=== PATIENT | female | born 1945 | race Caucasian/White ===

== ENCOUNTER → 2016-11-15 | Outpatient (CLI) | payer MEDICARE ==
[~2016-11-15] MED LIST: *BLDWK1; *BLDWK10; *BLDWK7; *CXR; ADVAIR200 INHALATION; ALLE10TA2 PO; AMO500 PO; ASPI1TAB PO; ASTELIN NASAL; CARTIA; CLAR5CHW; CLARITIN10 PO; DARVOCET-N PO; DILT240C3; DITROPAXL5 PO; DRISDOL50 PO; DYAZ37.5; DYAZIDE; EFFE75CA75; EFFEXORXL7 PO; EPIPENAD INJECTION; ESTR625TA; FAMVIR; GLUC500T; GLUCOPH500 PO; GLUCOSAMINE; HCTZ25; KDUR20 PO; LEXAPRO10 PO; MACROBID PO; MOBIC7.5 PO; MOTRIN800 PO; OMEGA FISH OIL; OMEGA FISH OIL PO; OXYB5TAB4 PO; POTA20TA2 PO; PREMARIN; PROVENTIL INHALATION; PYRIDIU200 PO; RHINOAEROS; SKELAXIN8 PO; SPIR25TA2 PO; TESSALO100 PO; THERGRAN PO; TIAZAC; TIAZAC PO; VENL75TA2; VENTAER; VENTOLININ INHALATION; VICO5TAB; VITA500T PO; WELLBSR150; ZETIA PO; ZITHROM500 PO; ZITHROZPAK PO; ZOCO10TA PO; ZOCOR10 PO; ZOLOFT100; [UNRECOGNIZED DRUG - CODE]; [UNRECOGNIZED DRUG - OTHER] PO; [UNRECOGNIZED DRUG - SUPPLY]
[2016-11-15 08:07] LABS: MEAN CORPUSCULAR HEMOGLOBIN 33.1 pg (27.0-33.0); MEAN CORPUSCULAR HGB CONC 34.4 g/dl (32.0-36.5); MEAN CORPUSCULAR VOLUME 96.2 fl (80.0-96.0); RED CELL DISTRIBUTION WIDTH 12.2 % (11.5-14.5); WHITE BLOOD COUNT 3.8 K/mm3 (4.0-10.0)
[2016-11-15 08:32] LABS: ALBUMIN/GLOBULIN RATIO 1.29 (1.00-1.93); ALKALINE PHOSPHATASE 45 U/L (45-117); ALT/SGPT 46 U/L (12-78); ANION GAP 7 MEQ/L (8-16); AST/SGOT 21 U/L (15-37); BILIRUBIN,TOTAL 0.7 MG/DL (0.2-1.0); BLOOD UREA NITROGEN 21 MG/DL (7-18); CALCIUM LEVEL 9.3 MG/DL (8.8-10.2); CARBON DIOXIDE LEVEL 28 MEQ/L (21-32); CHLORIDE LEVEL 107 MEQ/L (98-107); CHOLESTEROL LEVEL 129 MG/DL (<200); CREATININE FOR GFR 1.36 MG/DL (0.55-1.02); GLOMERULAR FILTRATION RATE 40.7 (>39); GLUCOSE, FASTING 136 MG/DL (83-110); POTASSIUM SERUM 4.4 MEQ/L (3.5-5.1); SODIUM LEVEL 142 MEQ/L (136-145); TOTAL PROTEIN 7.1 GM/DL (6.4-8.2); TRIGLYCERIDES LEVEL 100 MG/DL (<150)
[2016-11-16 11:24] LABS: HEP C VIRUS AB SCREEN MEDICARE < 0.0 INDEX (<0.8)
== END ==
LOC: M LAB 07:06
PROVIDERS: ATTEND Family Medicine
DX: N18.3 Chronic kidney disease, stage 3 (moderate) (principal); E13.9 Other specified diabetes mellitus without complications; E04.9 Nontoxic goiter, unspecified; Z11.59 Encounter for screening for other viral diseases
CPT/HCPCS: 36415; 80053; 80061; 82043; 82306; 83036; 84439; 84443; 85027; G0472

== ENCOUNTER → 2017-05-02 | Outpatient (CLI) | payer MEDICARE ==
[2017-05-02 08:24] LABS: ANION GAP 7 MEQ/L (8-16); BLOOD UREA NITROGEN 21 MG/DL (7-18); CALCIUM LEVEL 8.6 MG/DL (8.8-10.2); CARBON DIOXIDE LEVEL 29 MEQ/L (21-32); CHLORIDE LEVEL 108 MEQ/L (98-107); CREATININE FOR GFR 1.21 MG/DL (0.55-1.02); GLOMERULAR FILTRATION RATE 46.6 (>39); GLUCOSE, FASTING 126 MG/DL (83-110); POTASSIUM SERUM 3.7 MEQ/L (3.5-5.1); SODIUM LEVEL 144 MEQ/L (136-145)
[2017-05-02 08:49] LABS: ESTIMATED AVERAGE GLUCOSE 134 MG/DL (60-110); HEMOGLOBIN A1c 6.3 %
== END ==
LOC: M LAB 06:54
DX: E13.9 Other specified diabetes mellitus without complications (principal)
CPT/HCPCS: 83036

== ENCOUNTER → 2017-11-08 | Outpatient (CLI) | payer MEDICARE ==
[2017-11-08 07:40] LABS: HEMATOCRIT 39.4 % (36.0-47.0); HEMOGLOBIN 13.3 g/dl (12.0-15.5); MEAN CORPUSCULAR HEMOGLOBIN 32.5 pg (27.0-33.0); MEAN CORPUSCULAR HGB CONC 33.8 g/dl (32.0-36.5); MEAN CORPUSCULAR VOLUME 96.3 fl (80.0-96.0); PLATELET COUNT, AUTOMATED 127 10^3/uL (150-450); RED BLOOD COUNT 4.09 10^6/uL (4.00-5.40); RED CELL DISTRIBUTION WIDTH 11.9 % (11.5-14.5); WHITE BLOOD COUNT 5.1 10^3/uL (4.0-10.0)
[2017-11-08 07:53] LABS: ESTIMATED AVERAGE GLUCOSE 143 MG/DL (60-110); HEMOGLOBIN A1c 6.6 %
[2017-11-08 08:19] LABS: ALBUMIN/GLOBULIN RATIO 1.21 (1.00-1.93); ALKALINE PHOSPHATASE 42 U/L (45-117); ALT/SGPT 47 U/L (12-78); ANION GAP 6 MEQ/L (8-16); AST/SGOT 20 U/L (7-37); BILIRUBIN,TOTAL 0.9 MG/DL (0.2-1.0); BLOOD UREA NITROGEN 23 MG/DL (7-18); CALCIUM LEVEL 8.7 MG/DL (8.8-10.2); CARBON DIOXIDE LEVEL 28 MEQ/L (21-32); CHLORIDE LEVEL 109 MEQ/L (98-107); CHOLESTEROL LEVEL 135 MG/DL (<200); CREATININE FOR GFR 1.31 MG/DL (0.55-1.30); GLOMERULAR FILTRATION RATE 42.4 (>39); GLUCOSE, FASTING 142 MG/DL (70-100); HDL CHOLESTEROL 50 MG/DL (>40); NON-HDL-C 85 MG/DL; POTASSIUM SERUM 3.7 MEQ/L (3.5-5.1); SODIUM LEVEL 143 MEQ/L (136-145); TOTAL PROTEIN 7.3 GM/DL (6.4-8.2); TRIGLYCERIDES LEVEL 105 MG/DL (<150)
[2017-11-08 08:26] LABS: CREATININE, URINE 89.4 MG/DL; MALB URINE SIEMENS 51.5 MG/L; MAU/CREAT RATIO 57.6 MCG/MG (0.0-30.0)
[2017-11-08 10:41] LABS: TOTAL 25(OH) VITAMIN D 40.6 NG/ML (30.0-100.0)
== END ==
LOC: M LAB 06:54
DX: I10 Essential (primary) hypertension (principal); N18.3 Chronic kidney disease, stage 3 (moderate); E13.9 Other specified diabetes mellitus without complications; E78.2 Mixed hyperlipidemia
CPT/HCPCS: 80053

== ENCOUNTER → 2018-05-08 | Outpatient (CLI) | payer MEDICARE ==
[~2018-05-08] MED LIST changes: +SPIR-10 PO; -SPIR25TA2 PO
[2018-05-08 08:35] LABS: HEMOGLOBIN A1c 6.3 %
[2018-05-08 08:46] LABS: ALBUMIN 3.9 GM/DL (3.2-5.2); BILIRUBIN,TOTAL 0.7 MG/DL (0.2-1.0); CALCIUM LEVEL 8.8 MG/DL (8.8-10.2); CREATININE FOR GFR 1.21 MG/DL (0.55-1.30); GLOMERULAR FILTRATION RATE 46.4 (>39); POTASSIUM SERUM 3.7 MEQ/L (3.5-5.1); TOTAL PROTEIN 6.7 GM/DL (6.4-8.2)
[2018-05-08 11:59] LABS: MALB URINE SIEMENS 39.8 MG/L
== END ==
LOC: M LAB 07:15
PROVIDERS: ATTEND Family Medicine
DX: E11.29 Type 2 diabetes mellitus with other diabetic kidney complication (principal)

== ENCOUNTER → 2018-11-02 | Outpatient (CLI) | payer MEDICARE ==
[~2018-11-02] MED LIST changes: -ALLE10TA2 PO; -ASPI1TAB PO; +ASPI81TA26 PO; +LORA-753 PO
[2018-11-02 07:39] LABS: HEMATOCRIT 38.6 % (36.0-47.0); HEMOGLOBIN 13.1 g/dl (12.0-15.5); MEAN CORPUSCULAR HEMOGLOBIN 33.5 pg (27.0-33.0); MEAN CORPUSCULAR HGB CONC 33.9 g/dl (32.0-36.5); MEAN CORPUSCULAR VOLUME 98.7 fl (80.0-96.0); PLATELET COUNT, AUTOMATED 118 10^3/uL (150-450); RED BLOOD COUNT 3.91 10^6/uL (4.00-5.40); WHITE BLOOD COUNT 4.9 10^3/uL (4.0-10.0)
[2018-11-02 08:07] LABS: ALBUMIN 3.9 GM/DL (3.2-5.2); BILIRUBIN,TOTAL 0.8 MG/DL (0.2-1.0); CALCIUM LEVEL 8.3 MG/DL (8.8-10.2); CHOLESTEROL RISK RATIO 2.367 (<5); CREATININE FOR GFR 1.19 MG/DL (0.55-1.30); FREE T4 0.97 NG/DL (0.76-1.46); GLOMERULAR FILTRATION RATE 47.2 (>39); POTASSIUM SERUM 3.6 MEQ/L (3.5-5.1); THYROID STIMULATING HORMONE 2.84 uIU/ML (0.358-3.740); TOTAL PROTEIN 6.9 GM/DL (6.4-8.2)
[2018-11-02 08:09] LABS: TOTAL 25(OH) VITAMIN D 43.4 NG/ML (30.0-100.0)
[2018-11-02 08:18] LABS: HEMOGLOBIN A1c 6.4 %
== END ==
LOC: M LAB 06:55
PROVIDERS: ATTEND Family Medicine
DX: E13.9 Other specified diabetes mellitus without complications (principal); E78.2 Mixed hyperlipidemia; E04.9 Nontoxic goiter, unspecified; N18.3 Chronic kidney disease, stage 3 (moderate)

== ENCOUNTER → 2019-04-29 | Outpatient (CLI) | payer MEDICARE ==
[2019-04-29 07:47] LABS: CALCIUM LEVEL 8.5 MG/DL (8.8-10.2); CREATININE FOR GFR 1.24 MG/DL (0.55-1.30); POTASSIUM SERUM 3.9 MEQ/L (3.5-5.1)
[2019-04-29 08:00] LABS: MALB URINE SIEMENS 40.1 MG/L; MAU/CREAT RATIO 38.1 MCG/MG (0.0-30.0)
[2019-04-29 10:16] LABS: HEMOGLOBIN A1c 6.9 %
== END ==
LOC: M LAB 06:53
PROVIDERS: ATTEND Family Medicine
DX: E11.29 Type 2 diabetes mellitus with other diabetic kidney complication (principal)

== ENCOUNTER → 2019-11-13 | Outpatient (CLI) | payer MEDICARE ==
[2019-11-13 07:22] LABS: HEMATOCRIT 39.8 % (36.0-47.0); HEMOGLOBIN 13.3 g/dl (12.0-15.5); MEAN CORPUSCULAR HEMOGLOBIN 32.8 pg (27.0-33.0); MEAN CORPUSCULAR HGB CONC 33.4 g/dl (32.0-36.5); PLATELET COUNT, AUTOMATED 115 10^3/uL (150-450); RED BLOOD COUNT 4.06 10^6/uL (4.00-5.40); WHITE BLOOD COUNT 4.3 10^3/uL (4.0-10.0)
[2019-11-13 07:53] LABS: ALBUMIN 3.8 GM/DL (3.2-5.2); ALT/SGPT 37 U/L (12-78); BILIRUBIN,TOTAL 0.9 MG/DL (0.2-1.0); BLOOD UREA NITROGEN 21 MG/DL (7-18); CALCIUM LEVEL 8.9 MG/DL (8.8-10.2); CARBON DIOXIDE LEVEL 31 MEQ/L (21-32); CHLORIDE LEVEL 108 MEQ/L (98-107); CHOLESTEROL LEVEL 132 MG/DL (<200); CHOLESTEROL RISK RATIO 2.588 (<5); CREATININE FOR GFR 1.15 MG/DL (0.55-1.30); FREE T4 1.05 NG/DL (0.76-1.46); GLUCOSE, FASTING 118 MG/DL (70-100); HDL CHOLESTEROL 51 MG/DL (>40); LDL CHOLESTEROL 61 MG/DL (<100); NON-HDL-C 81 MG/DL; POTASSIUM SERUM 3.5 MEQ/L (3.5-5.1); SODIUM LEVEL 144 MEQ/L (136-145); TOTAL PROTEIN 7.1 GM/DL (6.4-8.2); TRIGLYCERIDES LEVEL 102 MG/DL (<150)
[2019-11-13 08:38] LABS: HEMOGLOBIN A1c 5.7 %
[2019-11-13 11:09] LABS: VITAMIN B12 LEVEL 634 PG/ML
[2019-11-13 11:18] LABS: FOLATE > 24.0 NG/ML
== END ==
LOC: M LAB 06:39
PROVIDERS: ATTEND Family Medicine
DX: R26.89 Other abnormalities of gait and mobility (principal); E11.29 Type 2 diabetes mellitus with other diabetic kidney complication; E78.2 Mixed hyperlipidemia; N18.3 Chronic kidney disease, stage 3 (moderate); E04.9 Nontoxic goiter, unspecified

== ENCOUNTER → 2020-05-13 | Outpatient (CLI) | payer MEDICARE ==
[2020-05-13 08:21] LABS: CALCIUM LEVEL 9.2 MG/DL (8.8-10.2); CREATININE FOR GFR 1.22 MG/DL (0.55-1.30); GLOMERULAR FILTRATION RATE 45.7 (>39); POTASSIUM SERUM 3.8 MEQ/L (3.5-5.1)
[2020-05-13 10:58] LABS: HEMOGLOBIN A1c 5.6 %
== END ==
LOC: M LAB 06:39
PROVIDERS: ATTEND Family Medicine
DX: E11.29 Type 2 diabetes mellitus with other diabetic kidney complication (principal)

== ENCOUNTER → 2020-08-11 | Outpatient (REF) | payer MEDICARE ==
[~2020-08-11] MED LIST changes: +CENT1TAB PO; +K-TA10TA2 PO; +OXYB5TAB10 PO; +SIMV10TA21 PO; +[UNRECOGNIZED DRUG - CODE] PO; +[UNRECOGNIZED DRUG - OTHER] PO
[2020-08-11 12:33] LABS: APPEARANCE, URINE CLOUDY (CLEAR); BACTERIA, URINE AUTO 1+ (NEGATIVE); BILIRUBIN, URINE AUTO NEGATIVE (NEGATIVE); BLOOD, URINE BLOOD 1+ (NEGATIVE); COLOR, URINE YELLOW (YELLOW); GLUCOSE, URINE (UA) AUTO NEGATIVE (NEGATIVE); KETONE, URINE AUTO NEGATIVE (NEGATIVE); LEUKOCYTE ESTERASE, URINE AUTO 3+ (NEGATIVE); MUCUS, URINE SMALL (NEGATIVE); NITRITE, URINE AUTO NEGATIVE (NEGATIVE); PROTEIN, URINE AUTO NEGATIVE (NEGATIVE); RBC, URINE AUTO 9 /HPF (0-3); SPECIFIC GRAVITY URINE AUTO 1.011 (1.002-1.035); SQUAMOUS EPITHELIAL CELL UR AU 4 /HPF (0-6); UROBILINOGEN, URINE AUTO 0.2 mg/dL (0.0-2.0); WBC, URINE AUTO 103 /HPF (0-3)
== END ==
LOC: M SFHCADAM 11:25
PROVIDERS: ATTEND Physician Assistant
DX: N30.00 Acute cystitis without hematuria (principal)
CPT/HCPCS: 81001; 81002; 87088; 87186; G0463

== ENCOUNTER → 2020-09-04 | Outpatient (CLI) | payer MEDICARE | LOC: M LABSMTC 11:04 | PROVIDERS: ATTEND Anesthesiology | DX: Z01.812 Encounter for preprocedural laboratory examination (principal); Z20.822 Contact with and (suspected) exposure to COVID-19 ==

== ENCOUNTER 2020-09-09 08:26 | Day surgery (SDC) | payer MEDICARE ==
[~2020-09-09] VITALS: Ht 162.6 cm; Wt 54.3 kg
[~2020-09-09 08:26] MED LIST changes: +NS 1,000 ML IV ONE
[2020-09-09] MEDS ORDERED: propofoL 200 MG/20 ML VIAL As Ordered ONE (09:04)
[2020-09-09] MEDS ORDERED: fentaNYL 100 MCG/2 ML INJECTION (J3010) As Ordered ONE (09:04)
[2020-09-09] MEDS ORDERED: LIDOCAINE 2% MDV 20ML VIAL As Ordered ONE (09:04)
--- NOTE | 2020-09-09 09:27 | ROOR ---
Patient Name: Lida Pierre Procedure Date: 09/09/2020 9:09 AM Date of : 1945 Age: 75 Room: [facility] Gender: Female Note Status: Finalized Procedure: Upper GI endoscopy + Balloon dilatation Indications: Dysphagia, Heartburn Providers: Eduardo Miranda MD Referring MD: Nii Coleman MD Requesting Provider: Medicines: Monitored Anesthesia Care Complications: No immediate complications. Procedure: Pre-Anesthesia Assessment: - The heart rate, respiratory rate, oxygen saturations, blood pressure, adequacy of pulmonary ventilation, and response to care were monitored throughout the procedure. The Endoscope was introduced through the mouth, and advanced to the second part of duodenum. The upper GI endoscopy was accomplished without difficulty. The patient tolerated the procedure well. Findings: The Z-line was regular and was found 35 cm from the incisors. A mild Schatzki ring was found at the gastroesophageal junction. A TTS dilator was passed through the scope. Dilation with a 15-16.5-18 mm balloon dilator was performed to 18 mm. The dilation site was examined and showed mild mucosal disruption. A medium-sized hiatal hernia was present. No other significant abnormalities were identified in a careful examination of the stomach. The exam of the duodenum was otherwise normal. Impression: - Z-line regular, 35 cm from the incisors. - Mild Schatzki ring. Dilated. - Medium-sized hiatal hernia. - No specimens collected. - The examination was otherwise normal. Recommendation: - Patient has a contact number available for emergencies. The signs and symptoms of potential delayed complications were discussed with the patient. Return to normal activities tomorrow. Written discharge instructions were provided to the patient. - Resume previous diet. - Discharge patient to home. - Follow an antireflux regimen. - Continue present medications. - Repeat upper endoscopy PRN for retreatment. - Return to referring physician. - Use Prilosec (omeprazole) 40 mg PO daily. - The findings and recommendations were discussed with the patient's family. Procedure Code(s): --- Professional --- 60519, Esophagogastroduodenoscopy, flexible, transoral; with transendoscopic balloon dilation of esophagus (less than 30 mm diameter) Diagnosis Code(s): --- Professional --- K22.2, Esophageal obstruction K44.9, Diaphragmatic hernia without obstruction or gangrene R13.10, Dysphagia, unspecified R12, Heartburn CPT copyright 2019 [employer]. All rights reserved. The codes documented in this report are preliminary and upon clipper machine review may be revised to meet current compliance requirements. Eduardo Miranda MD Eduardo Miranda MD 09/09/2020 9:27:01 AM Electronically signed by Eduardo Miranda MD Number of Addenda: 0 Note Initiated On: 09/09/2020 9:09 AM Estimated Blood Loss: Estimated blood loss: none.
--- NOTE | 2020-09-09 09:49 | ROOR ---
Patient Name: Lida Pierre Procedure Date: 09/09/2020 9:09 AM Date of : 1945 Age: 75 Room: [facility] Gender: Female Note Status: Finalized Procedure: Total Colonoscopy to Cecum + Biopsy Polypectomy Indications: Colon cancer screening in patient at increased risk: Colorectal cancer in father, High risk colon cancer surveillance: Personal history of colonic polyps Providers: Eduardo Miranda MD Referring MD: Nii Coleman MD Requesting Provider: Medicines: Monitored Anesthesia Care Complications: No immediate complications. Procedure: Pre-Anesthesia Assessment: - The heart rate, respiratory rate, oxygen saturations, blood pressure, adequacy of pulmonary ventilation, and response to care were monitored throughout the procedure. The Colonoscope was introduced through the anus and advanced to the cecum, identified by appendiceal orifice and ileocecal valve. The colonoscopy was performed without difficulty. The patient tolerated the procedure well. The quality of the bowel preparation was good. Findings: The perianal and digital rectal examinations were normal. Non-bleeding internal hemorrhoids were found during retroflexion. The hemorrhoids were small and Grade I (internal hemorrhoids that do not prolapse). Multiple small-mouthed diverticula were found in the recto-sigmoid colon, sigmoid colon and descending colon. A medium polyp was found in the mid ascending colon. The polyp was sessile. The polyp was removed with a jumbo cold forceps. Resection and retrieval were complete. The exam was otherwise without abnormality on direct and retroflexion views. Impression: - Non-bleeding internal hemorrhoids. - Diverticulosis in the recto-sigmoid colon, in the sigmoid colon and in the descending colon. - One medium polyp in the mid ascending colon, removed with a jumbo cold forceps. Resected and retrieved. - The examination was otherwise normal on direct and retroflexion views. - The exam was otherwise normal to the cecum. Recommendation: - Patient has a contact number available for emergencies. The signs and symptoms of potential delayed complications were discussed with the patient. Return to normal activities tomorrow. Written discharge instructions were provided to the patient. - High fiber diet. - Discharge patient to home. - Continue present medications. - Await pathology results. - Telephone GI clinic for pathology results in 1 week. - Repeat colonoscopy is not recommended due to current age (66 years or older) for surveillance based on pathology results. - Return to referring physician. - The findings and recommendations were discussed with the patient's family. Procedure Code(s): --- Professional --- 69281, Colonoscopy, flexible; with biopsy, single or multiple Diagnosis Code(s): --- Professional --- Z80.0, Family history of malignant neoplasm of digestive organs Z86.010, Personal history of colonic polyps K64.0, First degree hemorrhoids K63.5, Polyp of colon K57.30, Diverticulosis of large intestine without perforation or abscess without bleeding CPT copyright 2019 [employer]. All rights reserved. The codes documented in this report are preliminary and upon finance mgr review may be revised to meet current compliance requirements. Eduardo Miranda MD Eduardo Miranda MD 09/09/2020 9:49:16 AM Electronically signed by Eduardo Miranda MD Number of Addenda: 0 Note Initiated On: 09/09/2020 9:09 AM Estimated Blood Loss: Estimated blood loss: none.
[2020-09-09 10:17] VITALS: BP 150/65
== END 2020-09-09 10:18 | disposition home or self-care (01) ==
LOC: M OPP 08:26
PROVIDERS: ATTEND Internal Medicine Gastroenterology
DX: Z12.11 Encounter for screening for malignant neoplasm of colon (principal); Z86.010 Personal history of colon polyps; Z80.0 Family history of malignant neoplasm of digestive organs; D12.2 Benign neoplasm of ascending colon; K57.30 Diverticulosis of large intestine without perforation or abscess without bleeding; K64.0 First degree hemorrhoids; K22.2 Esophageal obstruction; K44.9 Diaphragmatic hernia without obstruction or gangrene; R13.10 Dysphagia, unspecified; Z79.82 Long term (current) use of aspirin; Z79.899 Other long term (current) drug therapy; Z88.0 Allergy status to penicillin; Z88.1 Allergy status to other antibiotic agents; Z88.5 Allergy status to narcotic agent
CPT/HCPCS: 43249; 45380; 88305; J3010

== ENCOUNTER → 2020-11-05 | Outpatient (CLI) | payer MEDICARE ==
[~2020-11-05] MED LIST changes: -NS 1,000 ML IV ONE
[2020-11-05 06:50] LABS: HEMATOCRIT 41.3 % (36.0-47.0); HEMOGLOBIN 13.4 g/dl (12.0-15.5); MEAN CORPUSCULAR HEMOGLOBIN 31.6 pg (27.0-33.0); MEAN CORPUSCULAR HGB CONC 32.4 g/dl (32.0-36.5); MEAN CORPUSCULAR VOLUME 97.4 fl (80.0-96.0); PLATELET COUNT, AUTOMATED 120 10^3/uL (150-450); RED BLOOD COUNT 4.24 10^6/uL (4.00-5.40); WHITE BLOOD COUNT 4.6 10^3/uL (4.0-10.0)
[2020-11-05 07:24] LABS: ALBUMIN 3.9 GM/DL (3.2-5.2); BILIRUBIN,TOTAL 0.9 MG/DL (0.2-1.0); CALCIUM LEVEL 8.8 MG/DL (8.8-10.2); CHOLESTEROL RISK RATIO 2.622 (<5); CREATININE FOR GFR 1.14 MG/DL (0.55-1.30); GLOMERULAR FILTRATION RATE 49.3 (>39); POTASSIUM SERUM 3.9 MEQ/L (3.5-5.1); THYROID STIMULATING HORMONE 3.16 uIU/ML (0.358-3.740); TOTAL PROTEIN 7.3 GM/DL (6.4-8.2)
[2020-11-05 07:27] LABS: CREATININE, URINE 62.3 MG/DL; MALB URINE SIEMENS 61.5 MG/L; MAU/CREAT RATIO 98.7 MCG/MG (0.0-30.0)
== END ==
LOC: M LAB 06:23
PROVIDERS: ATTEND Family Medicine
DX: E11.29 Type 2 diabetes mellitus with other diabetic kidney complication (principal)

== ENCOUNTER → 2020-11-12 | Outpatient (REF) | payer MEDICARE | LOC: M LAB REF 09:09 | PROVIDERS: ATTEND Family Medicine | DX: N30.00 Acute cystitis without hematuria (principal) ==

== ENCOUNTER → 2021-03-23 | Outpatient (REF) | payer MEDICARE | LOC: M SFHCPLAZ 12:55 | PROVIDERS: ATTEND Physician Assistant | DX: R09.89 Other specified symptoms and signs involving the circulatory and respiratory systems (principal) | CPT/HCPCS: 87426; G0463; U0003 ==

== ENCOUNTER → 2021-04-09 | Outpatient (REF) | payer MEDICARE | LOC: M LAB REF 15:00 | PROVIDERS: ATTEND Physician Assistant | DX: R19.7 Diarrhea, unspecified (principal) ==

== ENCOUNTER → 2021-05-21 | Outpatient (CLI) | payer MEDICARE ==
[2021-05-21 07:45] LABS: CALCIUM LEVEL 9.3 MG/DL (8.8-10.2); CREATININE FOR GFR 1.14 MG/DL (0.55-1.30); GLOMERULAR FILTRATION RATE 49.3 (>39)
[2021-05-21 08:00] LABS: HEMOGLOBIN A1c 6.6 %
== END ==
LOC: M LAB 06:51
PROVIDERS: ATTEND Family Medicine
DX: E11.29 Type 2 diabetes mellitus with other diabetic kidney complication (principal)

== ENCOUNTER → 2022-01-13 | Outpatient (CLI) | payer MEDICARE ==
[2022-01-13 08:07] LABS: HEMATOCRIT 41.7 % (36.0-47.0); MEAN CORPUSCULAR HEMOGLOBIN 32.6 pg (27.0-33.0); MEAN CORPUSCULAR HGB CONC 33.6 g/dl (32.0-36.5); PLATELET COUNT, AUTOMATED 134 10^3/uL (150-450); WHITE BLOOD COUNT 5.1 10^3/uL (4.0-10.0)
[2022-01-13 08:22] LABS: HEMOGLOBIN A1c 6.4 %
[2022-01-13 08:56] LABS: ALBUMIN 4.1 GM/DL (3.2-5.2); BILIRUBIN,TOTAL 0.9 MG/DL (0.2-1.0); CALCIUM LEVEL 9.5 MG/DL (8.8-10.2); CHOLESTEROL RISK RATIO 2.795 (<5); CREATININE FOR GFR 1.17 MG/DL (0.55-1.30); FREE T4 1.05 NG/DL (0.76-1.46); GLOMERULAR FILTRATION RATE 47.7 (>39); POTASSIUM SERUM 4.2 MEQ/L (3.5-5.1); THYROID STIMULATING HORMONE 3.45 uIU/ML (0.358-3.740); TOTAL PROTEIN 7.3 GM/DL (6.4-8.2)
[2022-01-13 09:00] LABS: MAU/CREAT RATIO 180.9 MCG/MG (0.0-30.0)
== END ==
LOC: M LAB 06:39
PROVIDERS: ATTEND Family Medicine
DX: R80.9 Proteinuria, unspecified (principal); E78.2 Mixed hyperlipidemia; E04.9 Nontoxic goiter, unspecified; E11.29 Type 2 diabetes mellitus with other diabetic kidney complication

== ENCOUNTER → 2022-06-01 | Outpatient (REF) | payer MEDICARE ==
[2022-06-01 15:14] LABS: CALCIUM LEVEL 9.5 MG/DL (8.3-10.6); CREATININE FOR GFR 1.14 MG/DL (0.55-1.30); GLOMERULAR FILTRATION RATE 49.2 (>39); POTASSIUM SERUM 4.2 MMOL/L (3.5-5.1)
== END ==
LOC: M SFHCADAM 10:55
PROVIDERS: ATTEND Family Medicine
DX: Z01.818 Encounter for other preprocedural examination (principal); I10 Essential (primary) hypertension

== ENCOUNTER 2022-06-14 11:19 | Emergency (ER) | payer MEDICARE ==
[~2022-06-14] VITALS: Ht 162.6 cm; Wt 56.4 kg
[2022-06-14 16:02] LABS: BASO # 0.1 10^3/uL (0.0-0.2); BASO % 0.5 % (0.0-1.0); EOS # 0.2 10^3/uL (0.0-0.5); EOS % 2.2 % (0.0-3.0); HEMATOCRIT 42.6 % (36.0-47.0); HEMOGLOBIN 14.4 g/dl (12.0-15.5); LYMPH # 2.9 10^3/uL (1.5-5.0); LYMPH % 30.6 % (24.0-44.0); MEAN CORPUSCULAR HEMOGLOBIN 31.9 pg (27.0-33.0); MEAN CORPUSCULAR HGB CONC 33.8 g/dl (32.0-36.5); MEAN CORPUSCULAR VOLUME 94.5 fl (80.0-96.0); MONO # 0.9 10^3/uL (0.0-0.8); MONO % 9.5 % (2.0-8.0); NEUTROPHILS # 5.4 10^3/uL (1.5-8.5); NEUTROPHILS % 56.8 % (36.0-66.0); PLATELET COUNT, AUTOMATED 158 10^3/uL (150-450); RED BLOOD COUNT 4.51 10^6/uL (4.00-5.40); WHITE BLOOD COUNT 9.5 10^3/uL (4.0-10.0)
[2022-06-14 16:17] LABS: CK-MB VALUE MASS 4.1 NG/ML (<3.6)
[2022-06-14 16:21] LABS: MB/CK RELATIVE INDEX 1.2 (< OR =4)
[2022-06-14] MEDS ORDERED: NS 1,000 ML IV ONE (17:10)
[2022-06-14 19:36] LABS: MB/CK RELATIVE INDEX 1.47 (< OR =4)
[2022-06-14] MEDS ORDERED: ACETAMINOPHEN TAB 650MG DOSE (2X325MG) PO ONE (19:40)
[2022-06-14] MEDS ORDERED: amLODIPine 5 MG TAB PO ONE (19:50)
[2022-06-14] MEDS ORDERED: hydrALAZINE 20MG/ML 1ML VIAL IV ONE (19:50)
[2022-06-14 20:05] VITALS: BP 178/86
[2022-06-14] MEDS ORDERED: AMLO25TA PO (20:31)
[2022-06-14 20:59] VITALS: BP 172/86
== END 2022-06-14 21:07 | disposition home or self-care (01) ==
LOC: M ED 11:19
DX: I10 Essential (primary) hypertension (principal); E11.9 Type 2 diabetes mellitus without complications; E78.5 Hyperlipidemia, unspecified; J45.909 Unspecified asthma, uncomplicated; F32.9 Major depressive disorder, single episode, unspecified; Z79.82 Long term (current) use of aspirin; Z79.899 Other long term (current) drug therapy; Z88.8 Allergy status to other drugs, medicaments and biological substances; Z88.2 Allergy status to sulfonamides; Z88.5 Allergy status to narcotic agent; Z91.018 Allergy to other foods
CPT/HCPCS: 36415; 80047; 82550; 82553; 84484; 85025; 93005; 96361; 96374; 99284; J0360

== ENCOUNTER → 2022-06-28 | Outpatient (CLI) | payer MEDICARE ==
[~2022-06-28] MED LIST changes: +AMLO25TA PO
[2022-06-28 09:12] LABS: ALBUMIN 3.9 G/DL (3.2-5.2); BILIRUBIN,TOTAL 0.8 MG/DL (0.3-1.2); CALCIUM LEVEL 8.7 MG/DL (8.3-10.6); CHOLESTEROL RISK RATIO 2.73 (<5); CREATININE FOR GFR 1.04 MG/DL (0.55-1.30); GLOMERULAR FILTRATION RATE 54.7 (>39); HDL CHOLESTEROL 45.7 MG/DL (>40); LDL CHOLESTEROL 60.1 MG/DL (<100); POTASSIUM SERUM 3.8 MMOL/L (3.5-5.1); TOTAL PROTEIN 6.7 G/DL (5.7-8.2)
[2022-06-28 09:15] LABS: FREE T4 1.09 NG/DL (0.89-1.76); THYROID STIMULATING HORMONE 2.934 uIU/ML (0.55-4.78)
[2022-06-28 09:25] LABS: HEMOGLOBIN A1c 6.4 % (4.0-6.0)
== END ==
LOC: M LAB 06:14
PROVIDERS: ATTEND Family Medicine
DX: E11.29 Type 2 diabetes mellitus with other diabetic kidney complication (principal)

== ENCOUNTER → 2022-08-11 | Outpatient (REF) | payer MEDICARE ==
[2022-08-11 16:12] LABS: HEMATOCRIT 39.4 % (36.0-47.0); HEMOGLOBIN 13.3 g/dl (12.0-15.5); MEAN CORPUSCULAR HEMOGLOBIN 32.7 pg (27.0-33.0); MEAN CORPUSCULAR HGB CONC 33.8 g/dl (32.0-36.5); MEAN CORPUSCULAR VOLUME 96.8 fl (80.0-96.0); PLATELET COUNT, AUTOMATED 162 10^3/uL (150-450); RED BLOOD COUNT 4.07 10^6/uL (4.00-5.40); WHITE BLOOD COUNT 7.8 10^3/uL (4.0-10.0)
[2022-08-11 16:17] LABS: ALBUMIN 4.1 G/DL (3.2-5.2); BILIRUBIN,TOTAL 0.7 MG/DL (0.3-1.2); CALCIUM LEVEL 9.8 MG/DL (8.3-10.6); CREATININE FOR GFR 1.2 MG/DL (0.55-1.30); GLOMERULAR FILTRATION RATE 46.4 (>39); POTASSIUM SERUM 4.3 MMOL/L (3.5-5.1); TOTAL PROTEIN 7.2 G/DL (5.7-8.2)
[2022-08-11 16:24] LABS: HEMOGLOBIN A1c 6.6 % (4.0-6.0)
[2022-08-11 16:34] LABS: CREATININE, URINE 80.6 MG/DL; MAU/CREAT RATIO 33.4 MCG/MG (0.0-30.0)
== END ==
LOC: M SFHCADAM 13:50
PROVIDERS: ATTEND Family Medicine
DX: E11.29 Type 2 diabetes mellitus with other diabetic kidney complication (principal); N18.31 Chronic kidney disease, stage 3a; R80.9 Proteinuria, unspecified

== ENCOUNTER → 2022-09-13 | Outpatient (REF) | payer MEDICARE | LOC: M SFHCADAM 13:46 | PROVIDERS: ATTEND Physician Assistant | DX: E11.29 Type 2 diabetes mellitus with other diabetic kidney complication (principal); I12.9 Hypertensive chronic kidney disease with stage 1 through stage 4 chronic kidney disease, or unspecified chronic kidney disease ==

== ENCOUNTER → 2022-09-30 | Outpatient (CLI) | payer MEDICARE ==
[2022-09-30 06:48] LABS: HEMATOCRIT 38.7 % (36.0-47.0); HEMOGLOBIN 12.8 g/dl (12.0-15.5); MEAN CORPUSCULAR HEMOGLOBIN 32.5 pg (27.0-33.0); MEAN CORPUSCULAR HGB CONC 33.1 g/dl (32.0-36.5); MEAN CORPUSCULAR VOLUME 98.2 fl (80.0-96.0); PLATELET COUNT, AUTOMATED 134 10^3/uL (150-450); RED BLOOD COUNT 3.94 10^6/uL (4.00-5.40); WHITE BLOOD COUNT 5.4 10^3/uL (4.0-10.0)
[2022-09-30 07:08] LABS: CALCIUM LEVEL 8.5 MG/DL (8.3-10.6); CREATININE FOR GFR 1.46 MG/DL (0.55-1.30); GLOMERULAR FILTRATION RATE 36.9 (>39); POTASSIUM SERUM 3.9 MMOL/L (3.5-5.1)
[2022-09-30 07:31] LABS: HEMOGLOBIN A1c 6.4 % (4.0-6.0)
== END ==
LOC: M LAB 06:23
PROVIDERS: ATTEND Physician Assistant
DX: I10 Essential (primary) hypertension (principal)

== ENCOUNTER → 2022-12-23 | Outpatient (CLI) | payer MEDICARE ==
[~2022-12-23] MED LIST changes: -K-TA10TA2 PO; +POTA-165 PO
[2022-12-23 08:02] LABS: CALCIUM LEVEL 8.9 MG/DL (8.3-10.6); CREATININE FOR GFR 1.19 MG/DL (0.55-1.30); GLOMERULAR FILTRATION RATE 46.7 (>39); POTASSIUM SERUM 4.3 MMOL/L (3.5-5.1)
[2022-12-23 08:09] LABS: HEMOGLOBIN A1c 6.8 % (4.0-6.0)
== END ==
LOC: M LAB 06:43
PROVIDERS: ATTEND Family Medicine
DX: E11.29 Type 2 diabetes mellitus with other diabetic kidney complication (principal)

== ENCOUNTER → 2023-06-23 | Outpatient (CLI) | payer MEDICARE ==
[~2023-06-23] MED LIST changes: -OXYB5TAB10 PO; +OXYB5TAB14 PO
[2023-06-23 07:32] LABS: HEMATOCRIT 38.8 % (36.0-47.0); MEAN CORPUSCULAR HEMOGLOBIN 32.2 pg (27.0-33.0); MEAN CORPUSCULAR HGB CONC 33.5 g/dl (32.0-36.5); PLATELET COUNT, AUTOMATED 151 10^3/uL (150-450); RED BLOOD COUNT 4.04 10^6/uL (4.00-5.40); WHITE BLOOD COUNT 4.9 10^3/uL (4.0-10.0)
[2023-06-23 07:56] LABS: ALBUMIN 3.8 G/DL (3.2-5.2); BILIRUBIN,TOTAL 0.9 MG/DL (0.3-1.2); CALCIUM LEVEL 9.2 MG/DL (8.3-10.6); CHOLESTEROL RISK RATIO 3.17 (<5); CREATININE FOR GFR 1.2 MG/DL (0.55-1.30); CREATININE, URINE 67.6 MG/DL; GLOMERULAR FILTRATION RATE 46.3 (>39); HDL CHOLESTEROL 39.4 MG/DL (>40); LDL CHOLESTEROL 63.8 MG/DL (<100); MAU/CREAT RATIO 87.2 MCG/MG (0.0-30.0); NON-HDL-C 85.6 MG/DL; POTASSIUM SERUM 3.9 MMOL/L (3.5-5.1); TOTAL PROTEIN 6.8 G/DL (5.7-8.2)
== END ==
LOC: M LAB 06:36
PROVIDERS: ATTEND Family Medicine
DX: N18.31 Chronic kidney disease, stage 3a (principal); E13.9 Other specified diabetes mellitus without complications; E78.2 Mixed hyperlipidemia

== ENCOUNTER → 2023-06-29 | Outpatient (REF) | payer MEDICARE | LOC: M SFHCADAM 08:43 | PROVIDERS: ATTEND Family Medicine | DX: E13.9 Other specified diabetes mellitus without complications (principal) ==

== ENCOUNTER → 2023-08-17 | Outpatient (REF) | payer MEDICARE ==
[2023-08-17 13:15] LABS: C REACTIVE PROTEIN QUANTITATIV < 0.40 MG/DL (<1.0)
[2023-08-17 13:17] LABS: ALBUMIN 3.8 G/DL (3.2-5.2); ALKALINE PHOSPHATASE 56 U/L (46-116); ALT/SGPT 30 U/L (7.0-40); AST/SGOT 20 U/L (<34); BILIRUBIN,TOTAL 0.8 MG/DL (0.3-1.2); BLOOD UREA NITROGEN 25 MG/DL (9-23); CARBON DIOXIDE LEVEL 28 MMOL/L (20-31); CHLORIDE LEVEL 106 MMOL/L (98-107); CREATININE FOR GFR 1.24 MG/DL (0.55-1.30); GLOMERULAR FILTRATION RATE 44.5 (>39); GLUCOSE, FASTING 169 MG/DL (74-106); POTASSIUM SERUM 4.3 MMOL/L (3.5-5.1); SODIUM LEVEL 139 MMOL/L (136-145); TOTAL PROTEIN 7.1 G/DL (5.7-8.2)
[2023-08-17 13:29] LABS: HEMOGLOBIN A1c 6.8 % (4.0-6.0)
[2023-08-17 13:30] LABS: HEMATOCRIT 40.6 % (36.0-47.0); HEMOGLOBIN 13.6 g/dl (12.0-15.5); MEAN CORPUSCULAR HEMOGLOBIN 31.9 pg (27.0-33.0); MEAN CORPUSCULAR HGB CONC 33.5 g/dl (32.0-36.5); MEAN CORPUSCULAR VOLUME 95.1 fl (80.0-96.0); PLATELET COUNT, AUTOMATED 175 10^3/uL (150-450); RED BLOOD COUNT 4.27 10^6/uL (4.00-5.40); WHITE BLOOD COUNT 7.3 10^3/uL (4.0-10.0)
== END ==
LOC: M SFHCADAM 10:05
PROVIDERS: ATTEND Family Medicine
DX: E13.9 Other specified diabetes mellitus without complications (principal); K52.9 Noninfective gastroenteritis and colitis, unspecified; I10 Essential (primary) hypertension

== ENCOUNTER → 2023-10-19 | Outpatient (CLI) | payer MEDICARE ==
[2023-10-19 07:32] LABS: HEMOGLOBIN A1c 6.7 % (4.0-6.0)
[2023-10-19 07:34] LABS: CALCIUM LEVEL 9.2 MG/DL (8.3-10.6); CREATININE FOR GFR 1.27 MG/DL (0.55-1.30); GLOMERULAR FILTRATION RATE 43.2 (>39)
== END ==
LOC: M LAB 06:44
PROVIDERS: ATTEND Family Medicine
DX: E13.9 Other specified diabetes mellitus without complications (principal)

== ENCOUNTER → 2024-02-28 | Outpatient (CLI) | payer MEDICARE ==
[2024-02-28 08:08] LABS: HEMATOCRIT 37.4 % (36.0-47.0); HEMOGLOBIN 12.4 g/dl (12.0-15.5); MEAN CORPUSCULAR HEMOGLOBIN 32.2 pg (27.0-33.0); MEAN CORPUSCULAR HGB CONC 33.2 g/dl (32.0-36.5); MEAN CORPUSCULAR VOLUME 97.1 fl (80.0-96.0); PLATELET COUNT, AUTOMATED 155 10^3/uL (150-450); RED BLOOD COUNT 3.85 10^6/uL (4.00-5.40); WHITE BLOOD COUNT 5.3 10^3/uL (4.0-10.0)
[2024-02-28 08:35] LABS: ALBUMIN 3.7 G/DL (3.2-5.2); BILIRUBIN,TOTAL 0.7 MG/DL (0.3-1.2); CALCIUM LEVEL 9.7 MG/DL (8.3-10.6); CHOLESTEROL RISK RATIO 2.96 (<5); CREATININE FOR GFR 1.24 MG/DL (0.55-1.30); GLOMERULAR FILTRATION RATE 44.4 (>39); HDL CHOLESTEROL 38.8 MG/DL (>40); LDL CHOLESTEROL 58.6 MG/DL (<100); NON-HDL-C 76.2 MG/DL; POTASSIUM SERUM 4.2 MMOL/L (3.5-5.1); TOTAL PROTEIN 6.9 G/DL (5.7-8.2)
[2024-02-28 08:36] LABS: CREATININE, URINE 74.8 MG/DL; MAU/CREAT RATIO 141.7 MCG/MG (0.0-30.0)
[2024-02-28 08:39] LABS: FREE T4 1.3 NG/DL (0.89-1.76); THYROID STIMULATING HORMONE 4.92 uIU/ML (0.55-4.78)
[2024-02-28 08:58] LABS: HEMOGLOBIN A1c 7.1 % (4.0-6.0)
== END ==
LOC: M LAB 06:50
PROVIDERS: ATTEND Family Medicine
DX: K52.9 Noninfective gastroenteritis and colitis, unspecified (principal); E78.00 Pure hypercholesterolemia, unspecified

== ENCOUNTER → 2024-05-07 | Outpatient (CLI) | payer MEDICARE | LOC: M ADAMS 15:39 | PROVIDERS: ATTEND Family Medicine | DX: M25.462 Effusion, left knee (principal) ==

== ENCOUNTER → 2024-05-16 | Outpatient (REF) | payer MEDICARE | LOC: M SFHCWAGY 14:31 | PROVIDERS: ATTEND Nurse Practitioner Family | DX: N73.9 Female pelvic inflammatory disease, unspecified (principal) ==

== ENCOUNTER → 2024-09-11 | Outpatient (CLI) | payer MEDICARE ==
[2024-09-11 08:23] LABS: CALCIUM LEVEL 8.9 MG/DL (8.3-10.6); CREATININE FOR GFR 1.25 MG/DL (0.55-1.30); GLOMERULAR FILTRATION RATE 43.6 (>32); POTASSIUM SERUM 3.9 MMOL/L (3.5-5.1)
== END ==
LOC: M LAB 06:37
PROVIDERS: ATTEND Family Medicine
DX: E13.9 Other specified diabetes mellitus without complications (principal)

== ENCOUNTER → 2024-12-04 | Outpatient (REF) | payer MEDICARE ==
[2024-12-04 14:17] LABS: CALCIUM LEVEL 9.8 MG/DL (8.3-10.6); CARBON DIOXIDE LEVEL 28.0 MMOL/L (20-31); CHLORIDE LEVEL 104.0 MMOL/L (98-107); CREATININE FOR GFR 1.14 MG/DL (0.55-1.30); GLOMERULAR FILTRATION RATE 48.7 (>32); POTASSIUM SERUM 3.9 MMOL/L (3.5-5.1); SODIUM LEVEL 143.0 MMOL/L (136-145)
[2024-12-04 14:20] LABS: ESTIMATED AVERAGE GLUCOSE 166.0 MG/DL (60-110)
== END ==
LOC: M SFHCADAM 10:32
PROVIDERS: ATTEND Family Medicine
DX: Z01.818 Encounter for other preprocedural examination (principal); I10 Essential (primary) hypertension; E11.29 Type 2 diabetes mellitus with other diabetic kidney complication

== ENCOUNTER → 2025-03-13 | Outpatient (CLI) | payer MEDICARE ==
[2025-03-13 07:57] LABS: PLATELET COUNT, AUTOMATED 141 10^3/uL (150-450)
[2025-03-13 08:10] LABS: CREATININE, URINE 88.3 MG/DL; MALB URINE SIEMENS 92.0 MG/L; MAU/CREAT RATIO 104.1 MCG/MG (0.0-30.0)
[2025-03-13 08:23] LABS: ALT/SGPT 31.0 U/L (7.0-40); AST/SGOT 23.0 U/L (<34); CALCIUM LEVEL 9.0 MG/DL (8.3-10.6); CARBON DIOXIDE LEVEL 29.0 MMOL/L (20-31); CHLORIDE LEVEL 104.0 MMOL/L (98-107); CHOLESTEROL LEVEL 117.0 MG/DL (<200); CHOLESTEROL RISK RATIO 2.59 (<5); CREATININE FOR GFR 1.14 MG/DL (0.55-1.30); GLOMERULAR FILTRATION RATE 48.7 (>32); LDL CHOLESTEROL 51.7 MG/DL (<100); NON-HDL-C 71.9 MG/DL; POTASSIUM SERUM 3.9 MMOL/L (3.5-5.1); SODIUM LEVEL 142.0 MMOL/L (136-145); TRIGLYCERIDES LEVEL 101.0 MG/DL (<150)
[2025-03-13 08:58] LABS: ESTIMATED AVERAGE GLUCOSE 174.0 MG/DL (60-110)
== END ==
LOC: M LAB 07:11
PROVIDERS: ATTEND Family Medicine
DX: E13.22 Other specified diabetes mellitus with diabetic chronic kidney disease (principal); N18.31 Chronic kidney disease, stage 3a; E78.2 Mixed hyperlipidemia